=== PATIENT | female | born 1980 | race African-American/Black ===

== ENCOUNTER 2021-12-02 09:19 | Emergency (ER) | payer MEDICAID ==
[~2021-12-02] VITALS: Ht 160 cm; Wt 55.0 kg
[2021-12-02 09:36] VITALS: BP 144/89
== END 2021-12-02 11:07 | disposition left against medical advice (07) ==
LOC: ER 09:19
DX: Z32.02 Encounter for pregnancy test, result negative (principal); R20.0 Anesthesia of skin
CPT/HCPCS: 81025; 99282